=== PATIENT | male | born 1965 | race Caucasian/White ===

== ENCOUNTER 2022-05-01 17:10 | Emergency (ER) | payer MEDICAID, SELFPAY ==
[~2022-05-01 17:10] MED LIST: Iopamidol 370 76% 100 ML VIAL ONE
[2022-05-01] MEDS ORDERED: Pantoprazole 40 MG VIAL ONE (17:37)
[2022-05-01] MEDS ORDERED: Morphine 2 MG/ML VIAL ONE (17:37)
[2022-05-01] MEDS ORDERED: Promethazine HCl 25 MG/ML VIAL ONE (17:37)
[2022-05-01] MEDS ORDERED: Sodium Chloride 0.9% 1,000 ML ONE ×2 (17:37→19:33)
[2022-05-01 18:04] LABS: #Basophils 0.1 thou/uL (0.0-0.2); #Lymphocytes 1.7 thou/uL (1.20-3.40); #Monocytes 0.9 thou/uL (0.11-0.59); #Neutrophils 15.9 thou/uL (1.40-6.50); %Basophils 0.3 % (0.0-1.0); %Eosinophils 0.1 % (0.0-10.0); %Lymphocytes 9.1 % (21.0-51.0); %Monocytes 4.9 % (0.0-10.0); %Neutrophils 85.6 % (42.0-75.0); Hemoglobin 15.2 g/dL (14.0-18.0); MDiff Complete? YES; Mean Corpuscular HGB CONC 30.8 g/dL (32.0-36.0); Mean Corpuscular Hemoglobin 23.8 pg (27.0-31.0); Mean Corpuscular Volume 77.3 fL (78.0-98.0); Mean Platelet Volume 10.5 fL (7.4-10.4); Microcytosis SLIGHT = 6-15 cells (100X) (0-5/hpf); Platelet Count 226 thou/uL (130-400); Platelet Morphology Comment Appears Adequate; RBC Distribution Width 13.6 % (11.5-14.5); Red Blood Cell (RBC) Count 6.39 mill/uL (4.70-6.10); White Blood Cell (WBC) Count 18.5 thou/uL (4.8-10.8)
[2022-05-01 18:06] LABS: Base Excess-Venous -0.6 mmol/L (-2.0 to 3.0); Bicarbonate (HCO3v) 21.5 mmol/L (22.0-28.0); Calcium, Ionized 1.07 mmol/L (1.15-1.33); Chloride 101 mmol/L (98-107); Hemoglobin - Calc 16.8 g/dL (14.0-18.0); Potassium 3.9 mmol/L (3.5-5.1); Sodium 137 mmol/L (138-145); T. Carbon Dioxide 22.4 mmol/L (22.0-28.0); vO2 Saturation-calc 79.1 % (60.0-85.0)
[2022-05-01 18:10] LABS: Phosphorus 2.7 mg/dL (2.3-4.7)
[2022-05-01 18:12] LABS: ALT (SGPT) 39 U/L (8-55); AST (SGOT) 29 U/L (5-34); Albumin 3.8 g/dL (3.5-5.0); Alkaline Phosphatase 95 U/L (40-110); Anion Gap 18 mmol/L (10-20); BUN (Urea Nitrogen) 44 mg/dL (8.4-25.7); Bilirubin, Total 1.1 mg/dL (0.2-1.2); Calc. Creatinine Clearance 0 mL/min (70-130); Carbon Dioxide 21 mmol/L (22-29); Chloride 99 mmol/L (98-107); Estimated GFR 44; Globulin 3.8 g/dL (2.4-3.5); Glucose 389 mg/dL (70-105); Lipase 25 U/L (8-78); Magnesium 1.6 mg/dL (1.6-2.6); Potassium 3.9 mmol/L (3.5-5.1); Protein, Total 7.6 g/dL (6.0-8.3); Sodium 134 mmol/L (136-145)
[2022-05-01] MEDS ORDERED: Insulin Regular 300 UNITS/3 ML VIAL ONE (19:33)
[2022-05-01] MEDS ORDERED: Dextrose 5 %-0.45 % NaCl 1,000 ML ONE (21:22)
[2022-05-01] MEDS ORDERED: Lisinopril 10 MG TAB ONE (22:26)
== END 2022-05-01 22:37 | disposition short-term general hospital (02) ==
LOC: MADERS 17:10
DX: E11.10 Type 2 diabetes mellitus with ketoacidosis without coma (principal); N28.9 Disorder of kidney and ureter, unspecified; Z79.4 Long term (current) use of insulin
CPT/HCPCS: 36416; 74177; 80053; 82010; 82330; 82803; 83690; 83735; 84100; 84484; 85014; 85025; 93005; 96361; 96365; 96375; 36415-59; C9113; J1815; J2270; J2550; J7042; J7050; Q9967